=== PATIENT | male | born 1970 | race Caucasian/White ===

== ENCOUNTER → 2016-05-27 | Emergency (ER) | payer SELFPAY ==
[~2016-05-27] VITALS: Ht 177.8 cm; Wt 118.1 kg
[~2016-05-27] MED LIST: ASPI-586 PO; ASPIRIN 81 MG CHEW (CHILDREN'S ASA) PO ONE; BISO1TAB41 PO; FEXO-14 PO; GBPN600T PO; NEBI5TAB8 GT; NITR0.4T7 SL; ONDANSETRON 2 MG/ML (Z0FRAN) 2 ML VIAL IV ONE; SODIUM CHLORIDE 250 ML IV PRN; SODIUM CHLORIDE FLUSH 10 ML SYR IV PRN; SODIUM CHLORIDE FLUSH 3 ML SYR IV PRN; morphine INJ 4 MG/ML 1 ML SYRINGE IV PRN
[2016-05-27 14:10] VITALS: BP 183/93
[2016-05-27 14:50] LABS: BASOPHILS % (AUTO) 1 % (0-2); EOSINOPHILS # (AUTO) 0.3 10^3uL; EOSINOPHILS % (AUTO) 5 % (0-4); LYMPHOCYTES # (AUTO) 1.6 X10^3; MEAN CORPUSCULAR HEMOGLOBIN 29.6 PG (26.0-34.0); MEAN CORPUSCULAR HGB CONC 35.2 g/dL (31.0-37.0); MEAN CORPUSCULAR VOLUME 84 FL (80-100); MEAN PLATELET VOLUME 10.2 FL (6.0-9.5); MONOCYTES # (AUTO) 0.5 X10^3; MONOCYTES % (AUTO) 7 % (3-11); NEUTROPHILS # (AUTO) 4.2 X10^3; NEUTROPHILS % (AUTO) 63 % (51-67); PLATELET COUNT 253 10^3uL (150-450); WHITE BLOOD COUNT 6.64 10^3uL (4.0-11.0)
[2016-05-27 15:02] LABS: ALBUMIN 3.8 g/dL (3.4-5.0); ALKALINE PHOSPHATASE 119 U/L (38-126); ANION GAP 16.6 MEQ/L (3-15); BUN/CREATININE RATIO 13 (10-20); CREATINE KINASE 151 U/L (55-170); MAGNESIUM* 1.6 mg/dL (1.6-2.3); TOTAL PROTEIN 6.9 g/dL (6.4-8.5)
[2016-05-27] MEDS: NITROGLYCERIN SUBLINGUAL 0.4 MG (NITROQUICK) TABLET SL PRN ×2 (15:09→15:25)
[2016-05-27 15:52] LABS: AMPHETAMINE SCREEN, URINE Negative (Negative); CANNABINOID SCREEN, URINE Negative (Negative); METHAMPHETAMINE SCREEN URINE S NEGATIVE (NEGATIVE); OPIATE SCREEN URINE Negative (Negative); PROPOXYPHENE STAT NEGATIVE (NEGATIVE)
[2016-05-27 15:53] LABS: BILIRUBIN,URINE Negative (Negative); COLOR,URINE Yellow; GLUCOSE, URINE (UA) 3+ (Negative); LEUKOCYTE ESTERASE ,URINE Negative (Negative); UROBILINOGEN,URINE 0.2 mg/dL (0.2-1.0)
[2016-05-27 16:00] LABS: CLARITY,URINE Slightly Cloudy; RBC,URINE 20-50 /HPF; URINE CENTRIFUGED VOLUME 12 mL
--- NOTE | 2016-05-27 16:41 | Diagnostic Imaging Report ---
Portable chest compared to prior study from November 12, 2013. INDICATION: Shortness of breath. FINDINGS: No focal pulmonary infiltrates are demonstrated. There is no effusion. Heart size and mediastinal contours appear appropriate for AP technique. There is no evidence of failure. No acute osseous abnormality is demonstrated. IMPRESSION: No radiographic evidence of an acute cardiopulmonary process. Dictated by: Dictated on workstation # [id number]
== END ==
LOC: ED 14:02
DX: R07.89 Other chest pain (principal); R20.9 Unspecified disturbances of skin sensation; I16.0 Hypertensive urgency; E11.9 Type 2 diabetes mellitus without complications; Z72.0 Tobacco use
CPT/HCPCS: 36415; 71010; 80053; 80307; 80320; 81003; 81015; 82550; 82553; 83036; 83735; 83880; 84484; 85025; 85379; 85610; 85730; 93005; 96374; 99285; J2405; 93010; 99284